=== PATIENT | female | born 1995 ===

== ENCOUNTER 2017-04-30 03:41 | Emergency (ER) | payer OTHER ==
--- NOTE | 2017-04-30 05:24 | DIAGNOSTIC IMAGING REPORT ---
PROCEDURE: XR CHEST 2 VIEW INDICATION: SHORTNESS OF BREATH TECHNIQUE: PA and lateral views. COMPARISON: Compared to chest x-ray on 05/14/2016. FINDINGS: Lungs are clear. Heart and mediastinum are normal. Thorax is normal. IMPRESSION: 1. Negative chest.
--- NOTE | 2017-04-30 05:25 | ED CLINICAL REPORT ---
Clinical Report - Physicians/Mid Levels [facility] [address] [place] [address] 04/30/2017 3:44 Patient: ELEAZAR AGUIRRE Time Seen: 03:48. Arrived- By private vehicle. Historian- patient. HISTORY OF PRESENT ILLNESS Chief Complaint: ABDOMINAL PAIN and PELVIC PAIN. At its maximum, severity described as moderate. When seen in the E.D., severity described as moderate. Modifying factors- worsened by movement. Relieved by rest. It is described as "pain". No radiation. It is described as located in the right upper quadrant, right abdomen, right lower quadrant and epigastric area. This started today and is still present. It was gradual in onset and has been waxing/waning. No nausea, vomiting or diarrhea. Similar symptoms previously: None. Recent medical care: Not recently seen/assessed. REVIEW OF SYSTEMS Last normal menstrual period was 2 weeks ago. No constipation, black stools, hematemesis, difficulty with urination or pain with urination. No urinary frequency, bloody stools, fever, headache or sore throat. No chest pain, difficulty breathing, cough, joint pain or skin rash. No back pain. Denies current . All systems otherwise negative, except as recorded above. PAST HISTORY PCP: [place] PROBLEMS: Pharyngitis. Substance Abuse. Abdominal Pain. Dental Caries. Dental Abscess. Asthma. SURGERIES: . Medications: Albuterol Sulfate Inhalation. Allergies: None. SOCIAL HISTORY Smoker- current status unknown. History of IV drug use: heroin. No alcohol use. ADDITIONAL NOTES The nursing notes have been reviewed. PHYSICAL EXAM Vital Signs: 04/30/2017 03:48 BP: 109/65. HR: 101. RR: 16. O2 saturation: 98%. Temp: 97.3 F. Pain level now: 6/10. Appearance: Alert. Oriented X3. Anxious. Patient in mild distress. Eyes: Pupils equal, round and reactive to light. Eyes normal inspection. No scleral icterus or pale conjunctivae. ENT: Pharynx normal. No pharyngeal erythema or tonsillar exudate. The mucous membranes are not dry. Neck: Normal inspection. Neck supple. CVS: Heart sounds normal. Pulses normal. Respiratory: No respiratory distress. Breath sounds normal. Chest nontender. Abdomen: Soft. Mild tenderness in the upper abdomen, right upper quadrant, epigastric area, left upper quadrant, right side of the abdomen and right lower quadrant. No tenderness in the left lower quadrant or Love's sign present. No rebound tenderness or guarding. Back: Normal inspection. Skin: Skin warm and dry. Normal skin color. Normal skin turgor. Extremities: Extremities exhibit normal ROM. No lower extremity edema. Neuro: Oriented X 3. No motor deficit. LABS, X-RAYS, AND EKG Chest X-ray: No acute disease. Normal lung markings present. Normal heart size. Mediastinum normal. Great vessels normal. No infiltrate. Views: PA and lateral. Technique: good. The X-rays were interpreted contemporaneously by me. Laboratory Tests: CBC w Diff: (JENS: 04/30/2017 04:25) ( [facility] 04/30/2017 04:37) Final results Test Result Flag Units (Reference) WHITE BLOOD COUNT 7.1 K/uL (4.5-11.5) RED BLOOD COUNT 4.83 M/uL (4.00-5.20) HEMOGLOBIN 13.3 gm/dL (12.0-16.0) HEMATOCRIT 40.4 % (36.0-46.0) MEAN CELL VOLUME 84 fL (80-100) MEAN CORPUSCULAR HGB 28 pg (26-34) MEAN CORPUSCULAR HGB CONC 33 g/dL (31-37) RED CELL DISTRIBUTION WIDTH 14.2 % (11.6-14.8) PLATELET COUNT 245 K/uL (150-400) NEUTROPHIL % 53.1 % (50-75) LYMPH % 32.1 % (25-40) MONO % 7.9 % (3-14) EOSINOPHIL % 6.6 H % (0-4) BASOPHIL % 0.3 % (0-2) PT with INR: (JENS: 04/30/2017 04:25) ( [facility] 04/30/2017 04:44) Final results Test Result Flag Units (Reference) INR 0.9 (0.8-1.2) Low Intensity Therapy: INR 1.5-2.0 PT range 18.5-23.1Mod.Intensity Therapy: INR 2.0-3.0 PT range 23.1-31.5High Intensity Therapy: INR 2.5-3.5 PT range 27.4-35.5High Intensity Therapy 2: INR 3.0-4.0 PT range 31.5-39.3 BNP: (JENS: 04/30/2017 04:25) ( [facility] 04/30/2017 04:56) Final results Test Result Flag Units (Reference) B-TYPE NATRIURETIC PEPTIDE 7.1 pg/ml (5-100) Lactate, Serum: (JENS: 04/30/2017 04:25) ( [facility] 04/30/2017 04:59) Final results Test Result Flag Units (Reference) LACTIC ACID 1.5 mmol/L (0.4-2.0) Lipase: (JENS: 04/30/2017 04:25) ( [facility] 04/30/2017 04:49) Final results Test Result Flag Units (Reference) LIPASE 72 L U/L (73-393) AMYLASE 42 U/L (25-115) CHEM 13 PANEL: (EJNS: 04/30/2017 04:25) ( [facility] 04/30/2017 04:55) Final results Test Result Flag Units (Reference) GLUCOSE 74 mg/dL (70-110) BUN 5 L mg/dL (7-18) CREATININE 0.6 mg/dL (0.6-1.3) Estimated GFR >60 mL/min Estimated GFR- >60 mL/min Note: Persistent reduction over 3 months in eGFR<60 mL/min/1.73 m2 defines CKD. Patients with eGFR values>=60 mL/min/1.73 m2 may also have CKD if evidence ofpersistent proteinuria. Additional information may be foundat www.kidney.org. SODIUM 145 mmol/L (136-145) POTASSIUM 3.5 mmol/L (3.5-5.1) CHLORIDE 107 mmol/L (98-107) CARBON DIOXIDE 27 mmol/L (21-32) CALCIUM 8.8 mg/dL (8.5-10.1) TOTAL PROTEIN 7.2 g/dL (6.4-8.2) ALBUMIN 3.2 L g/dL (3.3-5.0) BILIRUBIN, TOTAL 0.7 mg/dL (0.0-1.0) ALKALINE PHOSPHATASE 69 U/L (46-116) AST (SGOT) 116 H U/L (15-37) ALT (SGPT) 37 U/L (12-78) MAGNESIUM 1.8 mg/dL (1.8-2.4) CPK 180 U/L (24-260) TROPONIN I <0.05 ng/mL (0.00-1.5) TROPONIN REFERENCE RANGE:<0.1 NEGATIVE0.1-1.5 INDETERMINANT>1.5 POSITIVE . Pulse Oximetry: 04/30/2017 03:48 O2 saturation: 98%. (FIO2 - room air). Interpretation: normal. PROGRESS AND PROCEDURES Course of Care: Normal Saline 1 liter IVPB given. Zofran 4 mg IVP given. 05:21 04/30/17. Patient is stable. The patient's symptoms are now gone. Physical exam findings are improved. Pt resting / sleeping comfortably. States no pain or nausea now. Labs normal, but she will not / can not provide a urine sample (nor will she allow cath). I have ordered a CT scan, but, after discussion with patient, we will hold this for now and she will follow up closely with her pcp (may be able to avoid radiation risks). No fever. Normal serum WBC and lactic acid level. 04/30/2017 05:45 BP: 130/76. HR: 82. RR: 18. O2 saturation: 100%. Pain level now: 01/22. Patient/family counseled. Old ED records reviewed. Disposition: Discharged. Condition: stable and improved. CLINICAL IMPRESSION Acute generalized abdominal pain of unknown cause. 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 Abnormal liver function test: AST/SGOT. Eosinophilia - consider allergic or parasitic component. INSTRUCTIONS Drink plenty of fluids. Do not smoke. Seek medical help to quit smoking. (You have declined the CT scan today, but understand that it is important to follow up closely with your doctor - MANDATORY FOLLOW UP IN 12 - 24 HOURS). Warnings: Further evaluation is necessary in order to recheck abnormal lab, obtain test results, conduct further tests and assess the possibility of serious illness. It is very important to follow up with a physician. SEDATIVE MEDICATION: You were given sedative medication during your visit. Do not drive or operate dangerous machinery. CONTROLLED SUBSTANCE WARNINGS. GENERAL WARNINGS: Return or contact your physician immediately if your condition worsens or changes unexpectedly, if not improving as expected, or if other problems arise. Prescription Medications: Zofran (orally disintegrating tablets) 4 mg: take 1 orally every 8 hours as needed for nausea and vomiting. Dispense five (5). No refill. Substitution is permissible. OTC Medications: Take acetaminophen (Tylenol, Datril, etc.) and ibuprofen (Advil, Nuprin, etc.) according to label instructions. Available over the counter. Follow-up with: [facility], , , [address], [place] [address] Follow up today. (Electronically signed by Osmani Boogie DO 04/30/2017 11:23)
--- NOTE | 2017-04-30 05:25 | ED ORDER SUMMARY ---
..... Patient: ELEAZAR AGUIRRE OrderSheet [facility] VisitID: [id number] [place] [address] 21y, F Registration Date/Time: 04/30/2017 ORDER SHEET Weight: 70.3 kg Allergies: None GENERAL ORDERS: Chest 1V Urgent (03:56 04/30/2017 PHutchinson DO) (Ack 4:02 CHagerty ER Oncologist) (4:05 PHutchinson DO) (Cancelled: Other4:05 PHutchinson DO) UA-Culture if indicated Urgent (03:56 04/30/2017 PHutchinson DO) (Ack 4:02 CHagerty ER Oncologist) Amylase Urgent (03:56 04/30/2017 PHutchinson DO) (Ack 4:02 CHagerty ER Oncologist) (4:32 JSanders R.N.) Lipase Urgent (03:56 04/30/2017 PHutchinson DO) (Ack 4:02 CHagerty ER Oncologist) (4:32 JSanders R.N.) PT with INR Urgent (03:56 04/30/2017 PHutchinson DO) (Ack 4:02 CHagerty ER Oncologist) (4:32 JSanders R.N.) Cardiac Panel Stat (03:56 04/30/2017 PHutchinson DO) (Ack 4:02 CHagerty ER Oncologist) (4:32 JSanders R.N.) Urine Urgent (03:56 04/30/2017 PHutchinson DO) (Ack 4:02 CHagerty ER Oncologist) Urine Drug Screen Urgent (03:56 04/30/2017 PHutchinson DO) (Ack 4:02 CHagerty ER Oncologist) Lactate, Serum Urgent (03:56 04/30/2017 PHutchinson DO) (Ack 4:02 CHagerty ER Oncologist) (4:32 JSanders R.N.) BNP Urgent (03:56 04/30/2017 PHutchinson DO) (Ack 4:02 CHagerty ER Oncologist) (4:32 JSanders R.N.) NPO (03:56 04/30/2017 PHutchinson DO) (Ack 3:57 OSnell) (4:03 JSanders R.N.) Chest 2V (epigastric pain; injection drug user) Urgent (04:05 04/30/2017 [facility]) (Ack 4:09 OSnell) (4:32 JSanders R.N.) CT Abd/Pel w Cont (No) (bun and cr normal) Urgent (05:00 04/30/2017 [facility]) (Ack 5:01 OSnell) (Cancelled: Patient Refusal5:23 [facility]) MEDICATION ORDERS: Zofran ODT PO 4 mg (NOW) (03:56 04/30/2017 [facility]) (Ack 4:03 JSanders R.N.) (4:22 JSanders R.N.) IV FLUIDS: IV NS : initial bolus 1000 mL (1000 mL/hr), then 250 mL/hr for X4 (NOW) (03:56 04/30/2017 [facility]) (Ack 4:03 JSanders R.N.) (4:44 JSanders R.N.) ORDER SHEET NOTES: [Electronically signed by Geeta Bryan R.N. (05:55 04/30/2017)] [Electronically signed by Osmani Boogie DO (11:23 04/30/2017)] [Electronically locked/signed by Geeta Bryan R.N. (05:55 04/30/2017)]
--- NOTE | 2017-04-30 05:25 | ED ORDER SUMMARY ---
..... Patient: ELEAZAR AGUIRRE OrderSheet [facility] VisitID: [id number] [place] [address] 21y, F Registration Date/Time: 04/30/2017 ORDER SHEET Weight: 70.3 kg Allergies: None GENERAL ORDERS: Chest 1V Urgent (03:56 04/30/2017 PHutchinson DO) (Ack 4:02 CHagerty ER Heel Brusher) (4:05 PHutchinson DO) (Cancelled: Other4:05 PHutchinson DO) UA-Culture if indicated Urgent (03:56 04/30/2017 PHutchinson DO) (Ack 4:02 CHagerty ER Heel Brusher) Amylase Urgent (03:56 04/30/2017 PHutchinson DO) (Ack 4:02 CHagerty ER Heel Brusher) (4:32 JSanders R.N.) Lipase Urgent (03:56 04/30/2017 PHutchinson DO) (Ack 4:02 CHagerty ER Heel Brusher) (4:32 JSanders R.N.) PT with INR Urgent (03:56 04/30/2017 PHutchinson DO) (Ack 4:02 CHagerty ER Heel Brusher) (4:32 JSanders R.N.) Cardiac Panel Stat (03:56 04/30/2017 PHutchinson DO) (Ack 4:02 CHagerty ER Heel Brusher) (4:32 JSanders R.N.) Urine Urgent (03:56 04/30/2017 PHutchinson DO) (Ack 4:02 CHagerty ER Heel Brusher) Urine Drug Screen Urgent (03:56 04/30/2017 PHutchinson DO) (Ack 4:02 CHagerty ER Heel Brusher) Lactate, Serum Urgent (03:56 04/30/2017 PHutchinson DO) (Ack 4:02 CHagerty ER Heel Brusher) (4:32 JSanders R.N.) BNP Urgent (03:56 04/30/2017 PHutchinson DO) (Ack 4:02 [facility] ER Heel Brusher) (4:32 JSanders R.N.) NPO (03:56 04/30/2017 PHutchinson DO) (Ack 3:57 OSnell) (4:03 JSanders R.N.) Chest 2V (epigastric pain; injection drug user) Urgent (04:05 04/30/2017 [facility]) (Ack 4:09 OSnell) (4:32 JSanders R.N.) CT Abd/Pel w Cont (No) (bun and cr normal) Urgent (05:00 04/30/2017 [facility]) (Ack 5:01 OSnell) (Cancelled: Patient Refusal5:23 [facility]) MEDICATION ORDERS: Zofran ODT PO 4 mg (NOW) (03:56 04/30/2017 [facility]) (Ack 4:03 JSanders R.N.) (4:22 JSanders R.N.) IV FLUIDS: IV NS : initial bolus 1000 mL (1000 mL/hr), then 250 mL/hr for X4 (NOW) (03:56 04/30/2017 [facility]) (Ack 4:03 JSanders R.N.) (4:44 JSanders R.N.) ORDER SHEET NOTES: [Electronically signed by Geeta [place] R.N. (05:55 04/30/2017)] [Electronically signed by Osmani Boogie DO (11:23 04/30/2017)] [Electronically locked/signed by Geeta Bryan R.N. (05:55 04/30/2017)]
--- NOTE | 2017-04-30 05:25 | ED NURSING NOTES ---
Clinical Report - Nurses [facility] [place] [address] 04/30/2017 3:44 Patient: ELEAZAR AGUIRRE TRIAGE Triage time 03:47 Apr 30 2017. Acuity: LEVEL 3. Chief Complaint: ABDOMINAL PAIN (Epigastric pain). 03:53 04/30/17. SEPSIS SCREEN: Sepsis Screen. Negative (no infection suspected/documented). DRE COMA SCORE: [place] Coma Scale: 15- eyes open spontaneously (4); best verbal response- oriented x 4 (5); best motor response- obeys commands (6). --03:53 Chel Gaffney R.N. 03:48 04/30/17. BP: 109/65 (regular adult cuff) taken on the left arm. HR: 101. RR: 16. O2 saturation: 98% on room air. Temp: 97.3 F (oral). Pain level now: 04/24. --03:53 Chel Gaffney R.N. Weight: 70.3 kg. Height/Length: 67 inches. BMI: 24.3. --03:53 Chel Gaffney R.N. Medications Albuterol Sulfate Inhalation. --03:47 Chel Gaffney R.N. Allergies None. --03:47 Chel Gaffney R.N. History Arrived by private vehicle. Historian: patient. Accompanied by family. Primary physician ([facility]). This started just prior to arrival. She has had abdominal pain. The pain is described as located in the epigastrium. PAST MEDICAL HX: Last normal menstrual period- 2 weeks ago. SOCIAL HX: Current every day heavy tobacco smoker- 1 pack per day. History of heavy IV drug use: heroin. No alcohol use. No infectious disease exposure. ABUSE ASSESSMENT: No report of abuse. SELF HARM ASSESSMENT: A self harm assessment was performed. The patient answered "no" to the question "Do you have thoughts of harming or killing yourself?" and "Have you recently had thoughts about harming or killing others?". --03:53 Chel Gaffney R.N. PROBLEMS: Pharyngitis. Substance Abuse. Abdominal Pain. Dental Caries. Dental Abscess. Asthma. --03:47 Chel Gaffney R.N. ADDITIONAL SURGERIES: . --03:47 Chel Gaffney R.N. Interventions ID band on patient. To treatment room. --03:53 Chel Gaffney R.N. PHYSICAL ASSESSMENT 03:54 04/30/17. Ambulatory to room. GENERAL / NEURO / PSYCH: Alert. Oriented X 4. Appears in no acute distress. HEENT: Mucous membranes are pink. RESPIRATORY: Respirations not labored. Breath sounds within normal limits. CVS: Normal heart rate and rhythm. Capillary refill less than 2 seconds. GI / : Abdomen soft and nontender. Bowel sounds within normal limits. No vaginal bleeding. No vaginal discharge. No genital lesions noted. SKIN: Skin is warm and dry. --03:54 Chel Gaffney R.N. NURSING PROGRESS NOTES 03:54 04/30/17. The plan of care for this patient has been created. Head of bed elevated. Reassurance given. Call light placed in reach. Side rails up x 1. Bed placed in lowest position. Brakes of bed on. Patient ready for evaluation- chart flagged and ED physician notified. --03:54 Chel Gaffney R.N. Two patient identifiers checked. --03:55 Chel Gaffney R.N. late entry - 04:05 04/30/17. ( Patient up to use restroom). --04:13 Chel Gaffney R.N. 04:19 04/30/2017 Site #1 started via IV in the right antecubital space with an 20g angiocath, with aseptic technique and good blood return; one attempt. Blood drawn: rainbow set. Labeled in the presence of the patient and sent to the lab. Saline lock flushed with 10 mL saline. --04:44 Chel Gaffney R.N. 04:20 04/30/17 late entry -. ( Patient back from bathroom). --04:36 Chel Gaffney R.N. 04:22 04/30/2017 Zofran ODT (Ondansetron) PO Oral Disintegrating Tablets 4 mg given. Allergies verified and confirmed 5 rights. --04:22 Chel Gaffney R.N. Patient transported to radiology by wheelchair with tech. (04:32 Apr 30 2017). --04:32 Chel Gaffney R.N. late entry - 04:28 04/30/17. ( Patients mother left the room, right after patient starting complaining more of stomach pains, crying, holding her abd then she yells, "go get my mom, I need my mom" Boyfriend started calling on the phone for her mother. At this time tech from Xray showed up and patient transferred to to scan.). --04:34 Chel Gaffney R.N. <<STRICKEN ENTRY-- late entry - 04:40 04/30/17. ( Patient back from restroom). --04:22 Chel Gaffney R.N. --END STRIKE>> Correction --04:35 Chel Gaffney R.N. 04:44 04/30/2017 Started bag #1 1000 mL IV Fluids IV NS (Saline); bolus of 1000 mL over 1 hour(s) then at 1000 mL/hr over 1 hour(s) via site #1 via dial-a-flow. Allergies verified and confirmed 5 rights. IV patency established. IV site checked: no pain, redness, or swelling. IV flushed thoroughly pre- and post-medication administration. --04:44 Chel Gaffney R.N. 04:54 04/30/2017 Zofran ODT PO Response: no adverse reaction pain is gone now. Symptoms have improved the patient feels better. --04:54 Chel Gaffney R.N. 04:56 04/30/17. ( Warm blanket given for patients comfort). --04:56 Chel Gaffney R.N. 05:17 04/30/2017 IV Fluids IV NS Discontinued: bag #1 completed. Total amount infused: 1000 mL. IV patency established. IV site checked: no pain, redness, or swelling. IV flushed thoroughly. --05:17 Chel Gaffney R.N. 05:18 04/30/2017 Started bag #2 1000 mL IV Fluids IV NS (Saline); at 250 mL/hr over 4 hour(s) via site #1 via IV pump. Allergies verified and confirmed 5 rights. IV patency established. IV site checked: no pain, redness, or swelling. IV flushed thoroughly pre- and post-medication administration. --05:18 Chel Gaffney R.N. 05:47 04/30/2017 IV Fluids IV NS Discontinued: completed. Total amount infused: 250 mL. IV patency established. IV site checked: no pain, redness, or swelling. IV flushed thoroughly. --05:55 Geeta Bryan R.N. DISPOSITION / DISCHARGE 05:47 04/30/2017 Site #1 removed upon discharge. Catheter intact. Manual pressure and bandage applied. --05:51 Geeta Bryan R.N. Departure time: 05. Condition at departure: improved and stable. No learning barriers present. Discharge instructions provided and reviewed with the patient and parent. Reviewed medication(s) side effects, precautions, dosing and course information. Prescription(s) given to the patient. Patient and parent verbalized understanding. Written instructions provided in Malay. ( pt and parent given d/c instructions both acknowledged understanding and denied questions,). The patient was discharged home and accompanied by parent. She left the Emergency Department ambulatory and via private vehicle. Parent driving. --05:53 Geeta Bryan R.N. 05:45 04/30/17. BP: 130/76 taken on the left arm, while lying. HR: 82 (regular). RR: 18 (regular and unlabored). O2 saturation: 100% on room air. Temp: deferred. Pain level now: 01/22. --05:53 Geeta Bryan R.N. Locked/Released at 04/30/2017 5:55 by Geeta Bryan R.N.
--- NOTE | 2017-04-30 11:24 | ED MAR SUMMARY ---
..... Medication Administration Record [facility] [address] [place] [address] Patient: ELEAZAR AGUIRRE Visit ID: [id number] 21y, F Weight: 70.3 kg Height/Length: 67 in BMI: 24.3 ALLERGIES: None Given 04:22 04/30/2017 Chel Gaffney R.N. Medication Administered: ZOFRAN ODT [PO] (ONDANSETRON), Dose: 4 mg Oral Disintegrating Tablets PO. Medication Ordered: Zofran ODT PO 4 mg (NOW). Start 04:44 04/30/2017 Chel Gaffney RNedN., Stop 05:17 04/30/2017 Chel Gaffney R.N. Medication Administered: IV NS (SALINE), Dose: IV Fluids over 1 hour(s), Rate: 1000 mL/hr, Bolus: 1000 mL over 1 hour(s), Dispensed: 1000 mL bag, Site: #1 right AC. Medication Ordered: IV NS : initial bolus 1000 mL (1000 mL/hr), then 250 mL/hr for X4 (NOW). Start 05:18 04/30/2017 Chel Gaffney RLiss., Stop 05:47 04/30/2017 Geeta Bryan RLiss. Medication Administered: IV NS (SALINE), Dose: IV Fluids over 4 hour(s), Rate: 250 mL/hr, Dispensed: 1000 mL bag, Site: #1 right AC. Medication Ordered: IV NS : initial bolus 1000 mL (1000 mL/hr), then 250 mL/hr for X4 (NOW).
--- NOTE | 2017-04-30 11:24 | ED DISCHARGE INSTRUCTIONS ---
Patient: ELEAZAR AGUIRRE [facility] VisitID: [id number] [place] [address] 21y, F Registration Date/Time: 04/30/2017 Acute generalized abdominal pain of unknown cause. 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 Abnormal liver function test: AST/SGOT. Eosinophilia - consider allergic or parasitic component. INSTRUCTIONS Drink plenty of fluids. Do not smoke. Seek medical help to quit smoking. (You have declined the CT scan today, but understand that it is important to follow up closely with your doctor - MANDATORY FOLLOW UP IN 12 - 24 HOURS). Warnings: Further evaluation is necessary in order to recheck abnormal lab, obtain test results, conduct further tests and assess the possibility of serious illness. It is very important to follow up with a physician. SEDATIVE MEDICATION: You were given sedative medication during your visit. Do not drive or operate dangerous machinery. CONTROLLED SUBSTANCE WARNINGS. GENERAL WARNINGS: Return or contact your physician immediately if your condition worsens or changes unexpectedly, if not improving as expected, or if other problems arise. Prescription Medications: Zofran (orally disintegrating tablets) 4 mg: take 1 orally every 8 hours as needed for nausea and vomiting. Dispense five (5). No refill. Substitution is permissible. OTC Medications: Take acetaminophen (Tylenol, Datril, etc.) and ibuprofen (Advil, Nuprin, etc.) according to label instructions. Available over the counter. Follow-up with: [facility], , , [address], [place] [id number] Follow up today. ADDITIONAL INFORMATION Abdominal Pain, Unknown Cause (Female) The exact cause of your abdominal (stomach) pain is not certain. This does not mean that this is something to worry about, or the right tests were not done. Everyone likes to know the exact cause of the problem, but sometimes with abdominal pain, there is no clear-cut cause, and this could be a good thing. The good news is that your symptoms can be treated, and you will feel better. Your condition does not seem serious now; however, sometimes the signs of a serious problem may take more time to appear. For this reason,it is important for you to watch for any new symptoms, problems,or worsening of your condition. Over the next few days, the abdominal pain may come and go, or be continuous. Other common symptoms can include nausea and vomiting. Sometimes it can be difficult to tell if you feel nauseous, you may just feel bad and not associate that feeling with nausea. Constipation, diarrhea, and a fever may go along with the pain. The pain may continue even if treated correctly over the following days. Depending on how things go, sometimes the cause can become clear and may require further or different treatment. Additional evaluations, medications, or tests may be needed. Home care Your health care provider may prescribe medications for pain, symptoms, or an infection. Follow the health care provider's instructions for taking these medications. General care Rest until your next exam. No strenuous activities. Try to find positions that ease discomfort. A small pillow placed on the abdomen may help relieve pain. Something warm on your abdomen (such as a heating pad) may help, but be careful not to burn yourself. Diet Do not force yourself to eat, especially if having cramps, vomiting, or diarrhea. Water is important so you do not get dehydrated. Soup may also be good. Sports drinks may also help, especially if they are not too acidic. Make sure you don't drink sugary drinks as this can make things worse. Take liquids in small amounts. Do not guzzle them. Caffeine sometimes makes the pain and cramping worse. Avoid dairy products if you have vomiting or diarrhea. Don't eat large amounts at a time. Wait a few minutes between bites. Eat a diet low in fiber (called a low-residue diet). Foods allowed include refined breads, white rice, fruit and vegetable juices without pulp, tender meats. These foods will pass more easily through the intestine. Avoid whole-grain foods, whole fruits and vegetables, meats, seeds and nuts, fried or fatty foods, dairy, alcohol and spicy foods until your symptoms go away. Follow-up care Follow up with your health care provider as instructed, or if your pain does not begin to improve in the next 24 hours. When to seek medical care Seek prompt medical care if any of the following occur: Pain gets worse or moves to the right lower abdomen New or worsening vomiting or diarrhea Swelling of the abdomen Unable to pass stool for more than three days Fever of 100.4F (38C) or higher, or as directed by your healthcare provider. Blood in vomit or bowel movements (dark red or black color) Jaundice (yellow color of eyes and skin) Weakness, dizziness Chest, arm, back, neck or jaw pain Unexpected vaginal bleeding or missed period Call 911 Call emergency services if any of the following occur: Trouble breathing Confusion Fainting or loss of consciousness Rapid heart rate Seizure Opiate Abuse Use and abuse of heroin or prescription pain medicines (Vicodin, codeine) may lead to physical ADDICTION or psychological DEPENDENCE. Once this occurs, you are at greater risk for any of the following: - Craving for the drug and unable to stop using the drug even though you think you want to stop (psychological dependence) - Drug withdrawal symptoms if you stop taking the drug (physical addiction) - Loss of your job or your family - Arrest, conviction and half-way sentence for possession of an illegal substance or for driving under the influence of such a substance - Accidental injuries to yourself or others while you are under the influence of the drug (in a car or at home). - HIV infection (much greater risk if you use IV drugs) - Other sexually transmitted diseases (Herpes, chlamydia, gonorrhea and others) - Severe and fatal infection of the heart valves (if you use IV drugs) - Stroke, heart attack, hepatitis B or C, kidney failure - from overdose Home Care: 1) Admit you have a drug problem. Ask for help from your family and close friends. 2) Seek professional help. This could be individual psychotherapy, counseling, or a drug treatment program (outpatient or residential). 3) Join a self-help group for drug abuse. 4) Avoid friends who abuse drugs themselves or tempt you to continue your habit 5) Eat a balanced diet and begin a regular exercise program. Follow Up with your doctor or as advised by our staff. Contact one of the resources below for help. National [place] on Alcoholism and Drug Dependence, www.ncadd.org 655-259-UIME Narcotics Anonymous (check your phone book for a local listing or call 855-308-3565) www.na.org National Alcohol and Substance Abuse Information Center (for referral to treatment programs) Www.Connectv.comcare[employer]agant[employer] 476-246-2526 Get Prompt Medical Attention if any of the following occur: -- Symptoms of withdrawal (agitation, anxiety, trembling, sweats, diarrhea, unable to sleep) -- Chest pain -- Unexplained fever over 100.4 F (38.0 C) -- Excessive drowsiness or inability to be awakened -- Slow breathing under 8 breaths per minute -- Shortness of breath or cough with colored sputum -- Redness, swelling or tenderness at an injection site How To Quit Smoking Smoking is one of the hardest habits to break. About half of all those who have ever smoked have been able to quit, and most of those (about 70%) who still smoke want to quit. Here are some of the best ways to stop smoking. Keep Trying: It takes most smokers about 8 tries before they are finally able to fully quit. So, the more often you try and fail, the better your chance of quitting the next time! So, don't give up! Go Cold [place]: Most ex-smokers quit cold turkey. Trying to cut back gradually doesn't seem to work as well, perhaps because it continues the smoking habit. Also, it is possible to fool yourself by inhaling more while smoking fewer cigarettes. This results in the same amount of nicotine in your body! Get Support: Support programs can make an important difference, especially for the heavy smoker. These groups offer lectures, methods to change your behavior and peer support. Call the free national Quitline for more information. 587-BXXP-EWL (351-670-4435). Low-cost or free programs are offered by many hospitals, local chapters of the [place] [employer] (579-079-4518) and the [place] [employer] (307-360-8642). Support at home is important too. Non-smokers can help by offering praise and encouragement. If the smoker fails to quit, encourage them to try again! Fvsu-Cfi-Tnrupat Medicines: For those who can't quit on their own, Nicotine Replacement Therapy (NRT) may make quitting much easier. Certain aids such as the nicotine patch, gum and lozenge are available without a prescription. However, it is best to use these under the guidance of your doctor. The skin patch provides a steady supply of nicotine to the body. Nicotine gum and lozenge gives temporary bursts of low levels of nicotine. Both methods take the edge off the craving for cigarettes. WARNING: If you feel symptoms of nicotine overdose, such as nausea, vomiting, dizziness, weakness, or fast heartbeat, stop using these and see your doctor. Prescription Medicines: After evaluating your smoking patterns and prior attempts at quitting, your doctor may offer a prescription medicine such as bupropion (Zyban, Wellbutrin), varenicline (Chantix, Champix), a niocotine inhaler or nasal spray. Each has its unique advantage and side effects which your doctor can review with you. Health Benefits Of Quitting: The benefits of quitting start right away and keep improving the longer you go without smokin minutes: blood pressure and pulse return to normal 8 hours: oxygen levels return to normal 2 days: ability to smell and taste begins to improve as damaged nerves start to regrow 2-3 weeks: circulation and lung function improves 1-9 months: decreased cough, congestion and shortness of breath; less tired 1 year: risk of heart attack decreases by half 5 years: risk of lung cancer decreases by half; risk of stroke becomes the same as a non-smoker For information about how to quit smoking, visit the following links: National Cancer [place] , Clearing the Air, Quit Smoking Today - an online booklet. http://www.smokefree.gov/pubs/clearing_the_air.pdf Smokefree.gov http://smokefree.gov/ QuitNet http://www.quitnet.com/ Ondansetron Oral disintegrating tablet What is this medicine? ONDANSETRON (on KIMBERLY se mary) is used to treat nausea and vomiting caused by chemotherapy. It is also used to prevent or treat nausea and vomiting after surgery. How should I use this medicine? These tablets are made to dissolve in the mouth. Do not try to push the tablet through the foil backing. With dry hands, peel away the foil backing and gently remove the tablet. Place the tablet in the mouth and allow it to dissolve, then swallow. While you may take these tablets with water, it is not necessary to do so. Talk to your rn homecare regarding the use of this medicine in children. Special care may be needed. What side effects may I notice from receiving this medicine? Side effects that you should report to your doctor or health childcare director as soon as possible: allergic reactions like skin rash, itching or hives, swelling of the face, lips, or tongue breathing problems dizziness fast or irregular heartbeat feeling faint or lightheaded, falls fever and chills swelling of the hands and feet tightness in the chest Side effects that usually do not require medical attention (report to your doctor or health childcare director if they continue or are bothersome): constipation or diarrhea headache What may interact with this medicine? Do not take this medicine with any of the following medications: -apomorphine -cisapride -dofetilide -dronedarone -pimozide -thioridazine -ziprasidone This medicine may also interact with the following medications: -carbamazepine -phenytoin -rifampicin -tramadol -other medicines that prolong the QT interval (cause an abnormal heart rhythm) What if I miss a dose? If you miss a dose, take it as soon as you can. If it is almost time for your next dose, take only that dose. Do not take double or extra doses. Where should I keep my medicine? Keep out of the reach of children. Store between 2 and 30 degrees C (36 and 86 degrees F). Throw away any unused medicine after the expiration date. What should I tell my health care provider before I take this medicine? They need to know if you have any of these conditions: heart disease history of irregular heartbeat liver disease low levels of magnesium or potassium in the blood an unusual or allergic reaction to ondansetron, granisetron, other medicines, foods, dyes, or preservatives or trying to get breast-feeding What should I watch for while using this medicine? Check with your doctor or health childcare director as soon as you can if you have any sign of an allergic reaction. You have been given the following additional information: Abdominal Pain, Unknown Cause, (Female) Opiate Abuse Smoking Cessation Ondansetron Oral disintegrating tablet (Electronically signed by Osmani Boogie DO 04/30/2017 11:23)
--- NOTE | 2017-04-30 11:24 | ED DISCHARGE INSTRUCTIONS ---
Patient: ELEAZAR AGUIRRE General Instructions [facility] VisitID: [id number] [place] [address] 21y, F Registration Date/Time: 04/30/2017 Acute generalized abdominal pain of unknown cause. 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 Abnormal liver function test: AST/SGOT. Eosinophilia - consider allergic or parasitic component. INSTRUCTIONS Drink plenty of fluids. Do not smoke. Seek medical help to quit smoking. (You have declined the CT scan today, but understand that it is important to follow up closely with your doctor - MANDATORY FOLLOW UP IN 12 - 24 HOURS). Warnings: Further evaluation is necessary in order to recheck abnormal lab, obtain test results, conduct further tests and assess the possibility of serious illness. It is very important to follow up with a physician. SEDATIVE MEDICATION: You were given sedative medication during your visit. Do not drive or operate dangerous machinery. CONTROLLED SUBSTANCE WARNINGS. GENERAL WARNINGS: Return or contact your physician immediately if your condition worsens or changes unexpectedly, if not improving as expected, or if other problems arise. Prescription Medications: Zofran (orally disintegrating tablets) 4 mg: take 1 orally every 8 hours as needed for nausea and vomiting. Dispense five (5). No refill. Substitution is permissible. OTC Medications: Take acetaminophen (Tylenol, Datril, etc.) and ibuprofen (Advil, Nuprin, etc.) according to label instructions. Available over the counter. Follow-up with: [facility], , , [address], [place] [address] Follow up today. ADDITIONAL INFORMATION Abdominal Pain, Unknown Cause (Female) The exact cause of your abdominal (stomach) pain is not certain. This does not mean that this is something to worry about, or the right tests were not done. Everyone likes to know the exact cause of the problem, but sometimes with abdominal pain, there is no clear-cut cause, and this could be a good thing. The good news is that your symptoms can be treated, and you will feel better. Your condition does not seem serious now; however, sometimes the signs of a serious problem may take more time to appear. For this reason,it is important for you to watch for any new symptoms, problems,or worsening of your condition. Over the next few days, the abdominal pain may come and go, or be continuous. Other common symptoms can include nausea and vomiting. Sometimes it can be difficult to tell if you feel nauseous, you may just feel bad and not associate that feeling with nausea. Constipation, diarrhea, and a fever may go along with the pain. The pain may continue even if treated correctly over the following days. Depending on how things go, sometimes the cause can become clear and may require further or different treatment. Additional evaluations, medications, or tests may be needed. Home care Your health care provider may prescribe medications for pain, symptoms, or an infection. Follow the health care provider's instructions for taking these medications. General care Rest until your next exam. No strenuous activities. Try to find positions that ease discomfort. A small pillow placed on the abdomen may help relieve pain. Something warm on your abdomen (such as a heating pad) may help, but be careful not to burn yourself. Diet Do not force yourself to eat, especially if having cramps, vomiting, or diarrhea. Water is important so you do not get dehydrated. Soup may also be good. Sports drinks may also help, especially if they are not too acidic. Make sure you don't drink sugary drinks as this can make things worse. Take liquids in small amounts. Do not guzzle them. Caffeine sometimes makes the pain and cramping worse. Avoid dairy products if you have vomiting or diarrhea. Don't eat large amounts at a time. Wait a few minutes between bites. Eat a diet low in fiber (called a low-residue diet). Foods allowed include refined breads, white rice, fruit and vegetable juices without pulp, tender meats. These foods will pass more easily through the intestine. Avoid whole-grain foods, whole fruits and vegetables, meats, seeds and nuts, fried or fatty foods, dairy, alcohol and spicy foods until your symptoms go away. Follow-up care Follow up with your health care provider as instructed, or if your pain does not begin to improve in the next 24 hours. When to seek medical care Seek prompt medical care if any of the following occur: Pain gets worse or moves to the right lower abdomen New or worsening vomiting or diarrhea Swelling of the abdomen Unable to pass stool for more than three days Fever of 100.4F (38C) or higher, or as directed by your healthcare provider. Blood in vomit or bowel movements (dark red or black color) Jaundice (yellow color of eyes and skin) Weakness, dizziness Chest, arm, back, neck or jaw pain Unexpected vaginal bleeding or missed period Call 911 Call emergency services if any of the following occur: Trouble breathing Confusion Fainting or loss of consciousness Rapid heart rate Seizure Opiate Abuse Use and abuse of heroin or prescription pain medicines (Vicodin, codeine) may lead to physical ADDICTION or psychological DEPENDENCE. Once this occurs, you are at greater risk for any of the following: - Craving for the drug and unable to stop using the drug even though you think you want to stop (psychological dependence) - Drug withdrawal symptoms if you stop taking the drug (physical addiction) - Loss of your job or your family - Arrest, conviction and intermediate sentence for possession of an illegal substance or for driving under the influence of such a substance - Accidental injuries to yourself or others while you are under the influence of the drug (in a car or at home). - HIV infection (much greater risk if you use IV drugs) - Other sexually transmitted diseases (Herpes, chlamydia, gonorrhea and others) - Severe and fatal infection of the heart valves (if you use IV drugs) - Stroke, heart attack, hepatitis B or C, kidney failure - from overdose Home Care: 1) Admit you have a drug problem. Ask for help from your family and close friends. 2) Seek professional help. This could be individual psychotherapy, counseling, or a drug treatment program (outpatient or residential). 3) Join a self-help group for drug abuse. 4) Avoid friends who abuse drugs themselves or tempt you to continue your habit 5) Eat a balanced diet and begin a regular exercise program. Follow Up with your doctor or as advised by our staff. Contact one of the resources below for help. National [place] on Alcoholism and Drug Dependence, www.ncadd.org 774-791-NUHW Narcotics Anonymous (check your phone book for a local listing or call 395-573-1593) www.na.org National Alcohol and Substance Abuse Information Center (for referral to treatment programs) Www.HyperformixcareHOLLR.Reedsy 483-255-6292 Get Prompt Medical Attention if any of the following occur: -- Symptoms of withdrawal (agitation, anxiety, trembling, sweats, diarrhea, unable to sleep) -- Chest pain -- Unexplained fever over 100.4 F (38.0 C) -- Excessive drowsiness or inability to be awakened -- Slow breathing under 8 breaths per minute -- Shortness of breath or cough with colored sputum -- Redness, swelling or tenderness at an injection site How To Quit Smoking Smoking is one of the hardest habits to break. About half of all those who have ever smoked have been able to quit, and most of those (about 70%) who still smoke want to quit. Here are some of the best ways to stop smoking. Keep Trying: It takes most smokers about 8 tries before they are finally able to fully quit. So, the more often you try and fail, the better your chance of quitting the next time! So, don't give up! Go Cold [place]: Most ex-smokers quit cold turkey. Trying to cut back gradually doesn't seem to work as well, perhaps because it continues the smoking habit. Also, it is possible to fool yourself by inhaling more while smoking fewer cigarettes. This results in the same amount of nicotine in your body! Get Support: Support programs can make an important difference, especially for the heavy smoker. These groups offer lectures, methods to change your behavior and peer support. Call the free national Quitline for more information. 240-EVPY-ILJ (395-816-4039). Low-cost or free programs are offered by many hospitals, local chapters of the [place] [employer] (036-057-7032) and the [employer] (388-204-6393). Support at home is important too. Non-smokers can help by offering praise and encouragement. If the smoker fails to quit, encourage them to try again! Pmsl-Bkk-Kcvqedi Medicines: For those who can't quit on their own, Nicotine Replacement Therapy (NRT) may make quitting much easier. Certain aids such as the nicotine patch, gum and lozenge are available without a prescription. However, it is best to use these under the guidance of your doctor. The skin patch provides a steady supply of nicotine to the body. Nicotine gum and lozenge gives temporary bursts of low levels of nicotine. Both methods take the edge off the craving for cigarettes. WARNING: If you feel symptoms of nicotine overdose, such as nausea, vomiting, dizziness, weakness, or fast heartbeat, stop using these and see your doctor. Prescription Medicines: After evaluating your smoking patterns and prior attempts at quitting, your doctor may offer a prescription medicine such as bupropion (Zyban, Wellbutrin), varenicline (Chantix, Champix), a niocotine inhaler or nasal spray. Each has its unique advantage and side effects which your doctor can review with you. Health Benefits Of Quitting: The benefits of quitting start right away and keep improving the longer you go without smokin minutes: blood pressure and pulse return to normal 8 hours: oxygen levels return to normal 2 days: ability to smell and taste begins to improve as damaged nerves start to regrow 2-3 weeks: circulation and lung function improves 1-9 months: decreased cough, congestion and shortness of breath; less tired 1 year: risk of heart attack decreases by half 5 years: risk of lung cancer decreases by half; risk of stroke becomes the same as a non-smoker For information about how to quit smoking, visit the following links: National Cancer [place] , Clearing the Air, Quit Smoking Today - an online booklet. http://www.smokefree.gov/pubs/clearing_the_air.pdf Smokefree.gov http://smokefree.gov/ QuitNet http://www.quitnet.com/ Ondansetron Oral disintegrating tablet What is this medicine? ONDANSETRON (on KIMBERLY se mary) is used to treat nausea and vomiting caused by chemotherapy. It is also used to prevent or treat nausea and vomiting after surgery. How should I use this medicine? These tablets are made to dissolve in the mouth. Do not try to push the tablet through the foil backing. With dry hands, peel away the foil backing and gently remove the tablet. Place the tablet in the mouth and allow it to dissolve, then swallow. While you may take these tablets with water, it is not necessary to do so. Talk to your inpatient pharmacist regarding the use of this medicine in children. Special care may be needed. What side effects may I notice from receiving this medicine? Side effects that you should report to your doctor or health neurocritical care physician as soon as possible: allergic reactions like skin rash, itching or hives, swelling of the face, lips, or tongue breathing problems dizziness fast or irregular heartbeat feeling faint or lightheaded, falls fever and chills swelling of the hands and feet tightness in the chest Side effects that usually do not require medical attention (report to your doctor or health neurocritical care physician if they continue or are bothersome): constipation or diarrhea headache What may interact with this medicine? Do not take this medicine with any of the following medications: -apomorphine -cisapride -dofetilide -dronedarone -pimozide -thioridazine -ziprasidone This medicine may also interact with the following medications: -carbamazepine -phenytoin -rifampicin -tramadol -other medicines that prolong the QT interval (cause an abnormal heart rhythm) What if I miss a dose? If you miss a dose, take it as soon as you can. If it is almost time for your next dose, take only that dose. Do not take double or extra doses. Where should I keep my medicine? Keep out of the reach of children. Store between 2 and 30 degrees C (36 and 86 degrees F). Throw away any unused medicine after the expiration date. What should I tell my health care provider before I take this medicine? They need to know if you have any of these conditions: heart disease history of irregular heartbeat liver disease low levels of magnesium or potassium in the blood an unusual or allergic reaction to ondansetron, granisetron, other medicines, foods, dyes, or preservatives or trying to get breast-feeding What should I watch for while using this medicine? Check with your doctor or health neurocritical care physician as soon as you can if you have any sign of an allergic reaction. You have been given the following additional information: Abdominal Pain, Unknown Cause, (Female) Opiate Abuse Smoking Cessation Ondansetron Oral disintegrating tablet (Electronically signed by Osmani Boogie DO 04/30/2017 11:23)
--- NOTE | 2017-04-30 11:24 | ED MED RECONCILIATION SUMMARY ---
Patient: ELEAZAR AGUIRRE Medication Reconciliation Report [facility] VisitID: [id number] [place] [address] 21y, F Registration Date/Time: 04/30/2017 Weight: 70.3 kg Height/Length: 67 in. BMI: 24.3 ALLERGIES: None The patient's Home Medications are listed below: THE FOLLOWING MEDICATIONS NEED TO BE RECONCILED: Albuterol Sulfate Inhalation The source(s) of the original Home Medication information: Not obtained. The following Medications were given to the patient in the Emergency Department: Zofran ODT [PO] PO 4 mg, administered: 04/30/2017 4:22:00 AM IV NS IV Fluids bolus 1000 mL over 1 hour(s), then 1000 mL/hr, administered: 04/30/2017 4:44:00 AM IV NS IV Fluids bolus 0, then 250 mL/hr, administered: 04/30/2017 5:18:00 AM The following Medications were prescribed to the patient: Take acetaminophen (Tylenol, Datril, etc.) and ibuprofen (Advil, Nuprin, etc.) according to label instructions. Available over the counter. -- Osmani Boogie DO Zofran (orally disintegrating tablets) 4 mg: take 1 orally every 8 hours as needed for nausea and vomiting. Dispense five (5). No refill. Substitution is permissible. -- Osmani Boogie DO
--- NOTE | 2017-04-30 11:24 | ED MAR SUMMARY ---
..... Medication Administration Record [facility] [address] [place] [address] Patient: ELEAZAR AGUIRRE Visit ID: [id number] 21y, F Weight: 70.3 kg Height/Length: 67 in BMI: 24.3 ALLERGIES: None Given 04:22 04/30/2017 Chel Gaffney R.N. Medication Administered: ZOFRAN ODT [PO] (ONDANSETRON), Dose: 4 mg Oral Disintegrating Tablets PO. Medication Ordered: Zofran ODT PO 4 mg (NOW). Start 04:44 04/30/2017 Chel Gaffney RNedN., Stop 05:17 04/30/2017 Chel Gaffney R.N. Medication Administered: IV NS (SALINE), Dose: IV Fluids over 1 hour(s), Rate: 1000 mL/hr, Bolus: 1000 mL over 1 hour(s), Dispensed: 1000 mL bag, Site: #1 right AC. Medication Ordered: IV NS : initial bolus 1000 mL (1000 mL/hr), then 250 mL/hr for X4 (NOW). Start 05:18 04/30/2017 Chel Gaffney RLiss., Stop 05:47 04/30/2017 Geeta Bryan RLiss. Medication Administered: IV NS (SALINE), Dose: IV Fluids over 4 hour(s), Rate: 250 mL/hr, Dispensed: 1000 mL bag, Site: #1 right AC. Medication Ordered: IV NS : initial bolus 1000 mL (1000 mL/hr), then 250 mL/hr for X4 (NOW).
--- NOTE | 2017-04-30 11:24 | ED MED RECONCILIATION SUMMARY ---
Patient: ELEAZAR AGUIRRE Medication Reconciliation Report [facility] VisitID: [id number] [place] [address] 21y, F Registration Date/Time: 04/30/2017 Weight: 70.3 kg Height/Length: 67 in. BMI: 24.3 ALLERGIES: None The patient's Home Medications are listed below: THE FOLLOWING MEDICATIONS NEED TO BE RECONCILED: Albuterol Sulfate Inhalation The source(s) of the original Home Medication information: Not obtained. The following Medications were given to the patient in the Emergency Department: Zofran ODT [PO] PO 4 mg, administered: 04/30/2017 4:22:00 AM IV NS IV Fluids bolus 1000 mL over 1 hour(s), then 1000 mL/hr, administered: 04/30/2017 4:44:00 AM IV NS IV Fluids bolus 0, then 250 mL/hr, administered: 04/30/2017 5:18:00 AM The following Medications were prescribed to the patient: Take acetaminophen (Tylenol, Datril, etc.) and ibuprofen (Advil, Nuprin, etc.) according to label instructions. Available over the counter. -- Osmani Boogie DO Zofran (orally disintegrating tablets) 4 mg: take 1 orally every 8 hours as needed for nausea and vomiting. Dispense five (5). No refill. Substitution is permissible. -- Osmani Boogie DO
== END 2017-04-30 05:47 | disposition home or self-care (01) ==
LOC: ED SRH 03:41
DX: R10.84 Generalized abdominal pain (principal); F11.122 Opioid abuse with intoxication with perceptual disturbance; R94.5 Abnormal results of liver function studies; D72.1 Eosinophilia; J45.909 Unspecified asthma, uncomplicated; Z79.51 Long term (current) use of inhaled steroids
CPT/HCPCS: 90100; 90616; 91320; 92031; 92235; 92530; 92610; 92720; 94060; 95059